=== PATIENT | female | born 1980 | race Caucasian/White ===

== ENCOUNTER 2021-02-14 07:09 | Day surgery (SDC) | payer BC ==
[2021-02-07 11:22] LABS: BASOPHILS % (AUTO) 0.7 % (0-1); EOSINOPHILS # (AUTO) 0.2 X10'3 (0-0.9); EOSINOPHILS % (AUTO) 3.6 % (0-6); LYMPHOCYTES # (AUTO) 1.7 X10'3 (1.1-4.8); LYMPHOCYTES % (AUTO) 28.2 % (21-51); MEAN CORPUSCULAR HEMOGLOBIN 31.6 PG (27.0-31.0); MEAN CORPUSCULAR HGB CONC 34.2 g/dL (33.0-36.5); MEAN CORPUSCULAR VOLUME 92.4 FL (78-98); MEAN PLATELET VOLUME 6.8 FL (7.4-10.4); MONOCYTES # (AUTO) 0.5 X10'3 (0-0.9); MONOCYTES % (AUTO) 8.6 % (2-12); NEUTROPHILS # (AUTO) 3.5 X10'3 (1.8-7.7); NEUTROPHILS % (AUTO) 58.9 % (42-75); PRE OP HEMOGLOBIN 13.7 g/dL (12.0-16.0); PRE OP PLATELET COUNT 261 X10'3 (140-440); RED BLOOD COUNT 4.32 X10'6 (4.20-5.60); RED CELL DISTRIBUTION WIDTH 12.8 % (11.5-14.5)
[2021-02-07 11:54] LABS: ALBUMIN 3.6 G/DL (3.4-5.0); ALKALINE PHOSPHATASE 50 IU/L (46-116); BLOOD UREA NITROGEN 12 MG/DL (7-18); BUN/CREATININE RATIO 16.9 (6.6-38.0); CALCIUM 8.9 MG/DL (8.5-10.1); CHLORIDE 106 MMOL/L (99-107); CREATININE 0.71 MG/DL (0.40-0.90); PRE OP ALT 23 U/L (30-65); PRE OP ANION GAP 8 (8-16); PRE OP AST 16 U/L (10-37); PRE OP BILIRUB, TOTAL 0.7 MG/DL (0.0-1.0); PRE OP GLUCOSE 105 MG/DL (70-104); PRE OP POTASSIUM 4.2 MMOL/L (3.4-5.1); PRE OP SODIUM 140 MMOL/L (135-145); TOTAL CARBON DIOXIDE 25.9 MMOL/L (24-32); TOTAL PROTEIN 7.3 G/DL (6.4-8.2); eGFR 90 ML/MIN
[2021-02-14] VITALS (14 sets, daily range): BP systolic 94–120; BP diastolic 60–83
[~2021-02-14] VITALS: Ht 170.2 cm; Wt 73.6 kg
[~2021-02-14 07:09] MED LIST: BUPIVAcaine/PF 2.5 mg/ml (0.25%) 30ml vial ONE; GALC120P IM; INDOCYANINE GREEN 25 MG/10 ML VIAL IV ONE; LIDOcaine 1% 30ml preserv. free vial ONE; LINA72CA PO; LIPOZENE; VALA100031 PO; clindamycin-Cleocin 900mg/D5W 50 ML IV ONE; famotidine 20mg tablet PO ONE; ringers solution, lacted 1,000 ML IV SCH; scopolamine 1mg/72 hr patch TD SCH
[2021-02-14] MEDS ORDERED: morphine 2 MG/ML inj. syringe IV PRN (07:30)
[2021-02-14] MEDS ORDERED: proCHLORperazine 10 MG/2 ml inj IV PRN (07:30)
[2021-02-14] MEDS ORDERED: meperidine/PF 25mg/ml syringe IV PRN ×3 (07:30)
[2021-02-14] MEDS ORDERED: ondansetron/PF 4mg/2ml inj IV PRN (07:30)
[2021-02-14] MEDS ORDERED: ringers solution, lacted 1,000 ML IV SCH (07:30)
[2021-02-14] MEDS ORDERED: morphine 4 MG/ML inj SYRINge IV PRN (07:30)
[2021-02-14] MEDS ORDERED: aprepitant 40mg capsule PO ONE (09:25)
[2021-02-14] MEDS ORDERED: fentaNYL/PF 50MCG/1 ML 2ML syringe ONE (09:36)
[2021-02-14] MEDS ORDERED: rocuronium 10mg/ml inj IV ONE (09:36)
[2021-02-14] MEDS ORDERED: midazolam 1 mg/ML 2ml injection ONE (09:36)
[2021-02-14] MEDS ORDERED: propofol inj 20 ML IV ONE (09:36)
[2021-02-14] MEDS ORDERED: sevoflurane 250ml liquid IH ONE (09:43)
[2021-02-14] MEDS ORDERED: ondansetron/PF 4mg/2ml inj ONE (10:39)
[2021-02-14] MEDS ORDERED: acetaminophen 1,000mg/100ml IV 100 ML IV ONE (10:41)
[2021-02-14] MEDS ORDERED: glycopyrrolate 0.2mg/ml inj ONE (10:44)
[2021-02-14] MEDS ORDERED: neostigmine methylsulfate 1 MG/ML 10ml vial ONE (10:44)
[2021-02-14] MEDS ORDERED: dexamethasone sod phosphate 4mg/ml inj. ONE (10:45)
--- NOTE | 2021-02-14 11:05 | NUR ---
ADMITTED TO PACU FROM OR ACCOMPANIED BY ANESTHESIA. INTIAL PHYSICAL ASSESSMENT DONE AND RECORDED. REPORT RECEIVED FROM ANESTHESIA.
[2021-02-14] MEDS ORDERED: HYDROcodone/acetaminophen 5mg/325mg tablet PO PRN ×2 (11:10)
[2021-02-14] MEDS ORDERED: oxyCODONE/APAP 10/325mg tablet PO ONE (12:05)
--- NOTE | 2021-02-14 12:36 | NUR ---
C/O SURGICAL PAIN, OFFERED MORPHINE PT DECLINES STATING IT MAKES HER VERY SICK, ALSO SAME WITH DEMEROL AND SHE CANNOT TAKE NORCO DUE TO SAME ISSUES WITH N/V. PT GIVEN IV TYLENOL IN OR ALONG WITH DECADRON AND ZOFRAN. PT HAS SCOP PATCH BEHIND LEFT EAR, STILL C/O SEVERE NAUSEA. MEDICATED WITH COMPAZINE. DR QUINN AND DR. FISH UPDATED AND ORDER FOR PERCOCET GIVEN PER PT REQUEST.
--- NOTE | 2021-02-14 13:15 | NUR ---
DISCHARGE CRITERIA MET, DISCHARGE INSTRUCTIONS GIVEN, DEMONSTRATES VERBAL UNDERSTANDING. DISCHARGED HOME IN GOOD CONDITION.
== END 2021-02-14 13:15 | disposition home or self-care (01) ==
LOC: PAS 07:09
PROVIDERS: ATTEND Surgery
DX: K80.12 Calculus of gallbladder with acute and chronic cholecystitis without obstruction (principal); G43.909 Migraine, unspecified, not intractable, without status migrainosus; Z88.1 Allergy status to other antibiotic agents; Z98.890 Other specified postprocedural states; Z79.899 Other long term (current) drug therapy; Z90.710 Acquired absence of both cervix and uterus; Z72.89 Other problems related to lifestyle; Z20.822 Contact with and (suspected) exposure to COVID-19; Z82.61 Family history of arthritis; Z80.3 Family history of malignant neoplasm of breast; Z80.41 Family history of malignant neoplasm of ovary; Z80.1 Family history of malignant neoplasm of trachea, bronchus and lung; Z85.3 Personal history of malignant neoplasm of breast; Z80.8 Family history of malignant neoplasm of other organs or systems
CPT/HCPCS: 36415; 47563; 80053; 82948; 85025; J0131; J0780; J1100; J2001; J2250; J2405; J2704; J2710; J3010; J3490; J7120; J8501; S2900; U0003; U0005; A4215; A4618; A7000